=== PATIENT | female | born 2000 | race Caucasian/White ===

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

== ENCOUNTER 2019-02-20 12:12 | Emergency (ER) | payer OTHER ==
[~2019-02-20] VITALS: Ht 162.5 cm; Wt 113.4 kg
[~2019-02-20 12:12] MED LIST changes: +PREDNISONE50 MG PO
[2019-02-20 12:56] LABS: BASO % 0.1 % (0.0-1.0); EOS # 0.1 10*3/uL (0.0-0.4); EOS % 1.1 % (1.0-4.0); HEMATOCRIT 42.8 % (37.0-47.0); HEMOGLOBIN 13.4 g/dl (12.0-16.0); LYMPH # 1.5 10*3/uL (1.3-4.4); LYMPH % 20.8 % (27.0-41.0); MEAN CELL VOLUME 85.4 fl (81.0-99.0); MEAN CORPUSCULAR HGB 26.7 pg (27.0-31.0); MEAN CORPUSCULAR HGB CONC 31.3 g/dl (33.0-37.0); MEAN PLATELET VOLUME 9.7 fl (9.6-12.3); MONO # 0.6 10*3/uL (0.1-1.0); MONO % 8.8 % (3.0-9.0); NEUT # 4.9 10*3/uL (2.3-7.9); NEUT % 69.1 % (47.0-73.0); PLATELET COUNT AUTOMATED 224 10*3/uL (130-400); RED BLOOD COUNT 5.01 10*6/uL (4.10-5.10); RED CELL DISTRI WIDTH 13.5 % (0-14.5); WHITE BLOOD COUNT 7.1 10*3/uL (4.8-10.8)
[2019-02-20 13:08] LABS: ACT PARTIAL THROMBO TIME 28.5 SECONDS (20.0-32.1)
[2019-02-20 13:16] LABS: LIPASE 64 U/L (73-393)
[2019-02-20 13:17] LABS: BETA-HCG, QUANT < 1.0 mIU/mL (1-3)
[2019-02-20 13:18] LABS: BILIRUBIN 1+ (NEGATIVE); BLOOD 3+ (NEGATIVE); CLARITY CLOUDY (CLEAR); COLOR YELLOW (YELLOW); GLUCOSE NEGATIVE (NEGATIVE); KETONE TRACE (NEGATIVE); LEUKO ESTERASE TRACE (NEGATIVE); NITRITE NEGATIVE (NEGATIVE); SPECIFIC GRAVITY 1.025 (1.005-1.030); UROBILINOGEN 0.2 E.U./dl (0.2-1.0)
[2019-02-20 13:31] LABS: BACTERIA 1+; EPITHELIAL CELLS 15-20; MUCOUS 2+
[2019-02-20 14:15] LABS: ALBUMIN 3.8 gm/dl (3.1-4.5); ALKALINE PHOSPHATASE 93 U/L (45-117); BUN 17 mg/dl (7-24); CHLORIDE 112 mmol/L (98-107); CREATININE 0.89 mg/dL (0.55-1.02); POTASSIUM 3.8 mmol/L (3.5-5.1); SGOT/AST 22 IU/L (3-35); SGPT/ALT 44 U/L (12-78); SODIUM 143 mmol/L (136-145); TOTAL PROTEIN 7.5 gm/dL (6.4-8.2)
[2019-02-20 14:23] LABS: TROPONIN I < 0.015 ng/ml (<0.045)
[2019-02-20] MEDS ORDERED: ZITHROMAX500 MG PO (16:38)
[2019-02-20] MEDS ORDERED: PROVENTIL HFA6.7 GM INH (16:38)
[2019-02-20] MEDS ORDERED: PREDNISONE20 M1 PO (16:38)
[2019-02-20] MEDS ORDERED: ZOFRAN4 MG PO (16:38)
== END 2019-02-20 16:55 | disposition home or self-care (01) ==
LOC: ED 12:12
PROVIDERS: Emergency Medicine; Nurse Practitioner Family
DX: J20.9 Acute bronchitis, unspecified (principal); R11.2 Nausea with vomiting, unspecified; R19.7 Diarrhea, unspecified; R10.9 Unspecified abdominal pain; I10 Essential (primary) hypertension; J45.909 Unspecified asthma, uncomplicated; Z79.899 Other long term (current) drug therapy

== ENCOUNTER 2019-07-26 12:58 | Emergency (ER) | payer OTHER ==
[~2019-07-26] VITALS: Ht 160 cm; Wt 122.5 kg
[~2019-07-26 12:58] MED LIST changes: +PROVENTIL HFA6.7 GM INH; +ZITHROMAX500 MG PO; +ZOFRAN4 MG PO
[2019-07-26 13:59] LABS: BASO % 0.5 % (0.0-1.0); EOS # 0.2 10*3/uL (0.0-0.4); EOS % 2.2 % (1.0-4.0); HEMATOCRIT 42.6 % (37.0-47.0); LYMPH # 2.2 10*3/uL (1.3-4.4); LYMPH % 26.7 % (27.0-41.0); MEAN CELL VOLUME 84.7 fl (81.0-99.0); MEAN CORPUSCULAR HGB 26.4 pg (27.0-31.0); MEAN CORPUSCULAR HGB CONC 31.2 g/dl (33.0-37.0); MEAN PLATELET VOLUME 9.2 fl (9.6-12.3); MONO # 0.6 10*3/uL (0.1-1.0); MONO % 7.2 % (3.0-9.0); NEUT # 5.1 10*3/uL (2.3-7.9); NEUT % 62.9 % (47.0-73.0); PLATELET COUNT AUTOMATED 235 10*3/uL (130-400); RED BLOOD COUNT 5.03 10*6/uL (4.10-5.10); RED CELL DISTRI WIDTH 14.1 % (0-14.5); WHITE BLOOD COUNT 8.1 10*3/uL (4.8-10.8)
[2019-07-26 14:16] LABS: ALKALINE PHOSPHATASE 108 U/L (45-117); BUN 14 mg/dl (7-24); CHLORIDE 111 mmol/L (98-107); CPK 282 U/L (26-192); CREATININE 0.78 mg/dL (0.55-1.02); POTASSIUM 4.1 mmol/L (3.5-5.1); SGOT/AST 25 IU/L (3-35); SGPT/ALT 55 U/L (12-78); SODIUM 139 mmol/L (136-145)
[2019-07-26 14:20] LABS: TROPONIN I < 0.015 ng/ml (<0.045)
[2019-07-26] MEDS ORDERED: ZOFRAN4 MG PO (15:35)
[2019-07-26] MEDS ORDERED: Motrin,Rufen800 MG PO (15:35)
== END 2019-07-26 15:42 | disposition home or self-care (01) ==
LOC: ED 12:58
PROVIDERS: Internal Medicine
DX: S00.83XA Contusion of other part of head, initial encounter (principal); R11.2 Nausea with vomiting, unspecified; I10 Essential (primary) hypertension; J45.909 Unspecified asthma, uncomplicated; Y08.89XA Assault by other specified means, initial encounter; Y93.89 Activity, other specified; Y92.89 Other specified places as the place of occurrence of the external cause; Y99.8 Other external cause status

== ENCOUNTER 2019-08-18 17:10 | Emergency (ER) | payer OTHER ==
[~2019-08-18] VITALS: Ht 160 cm; Wt 113.4 kg
[~2019-08-18 17:10] MED LIST changes: +Motrin,Rufen800 MG PO
[2019-08-18] MEDS ORDERED: IBU600 M1 PO (18:48)
== END 2019-08-18 18:51 | disposition home or self-care (01) ==
LOC: ED 17:10
DX: S60.212A Contusion of left wrist, initial encounter (principal); X58.XXXA Exposure to other specified factors, initial encounter; Y93.89 Activity, other specified; Y92.89 Other specified places as the place of occurrence of the external cause; Y99.8 Other external cause status

== ENCOUNTER 2020-02-18 16:30 | Emergency (ER) | payer OTHER ==
[~2020-02-18] VITALS: Ht 160 cm; Wt 127.0 kg
[~2020-02-18 16:30] MED LIST changes: +IBU600 M1 PO
== END 2020-02-18 18:33 | disposition left against medical advice (07) ==
LOC: ED 16:30
DX: R30.9 Painful micturition, unspecified (principal); Z53.21 Procedure and treatment not carried out due to patient leaving prior to being seen by health care provider

== ENCOUNTER → 2020-02-20 | Outpatient (CLI) | payer OTHER ==
[2020-02-20 16:14] LABS: BILIRUBIN Negative (Negative); BLOOD Negative (Negative); CLARITY Turbid (Clear); COLOR Yellow (Yellow); GLUCOSE Negative (Negative); KETONE Trace (Negative); LEUKO ESTERASE 2+ (Negative); NITRITE Negative (Negative); PH 7.5 (4.5-8.0); SPECIFIC GRAVITY >= 1.030 (1.001-1.030)
[2020-02-20 16:46] LABS: BACTERIA 1+
== END | disposition home or self-care (01) ==
LOC: LAB 15:42
PROVIDERS: ATTEND Nurse Practitioner Women's Health
DX: R35.0 Frequency of micturition (principal)

== ENCOUNTER 2020-05-21 01:36 | Emergency (ER) | payer OTHER ==
[2020-05-21 02:04] LABS: BASO % 0.4 % (0.0-1.0); EOS # 0.2 10*3/uL (0.0-0.4); EOS % 1.6 % (1.0-4.0); HEMATOCRIT 41.3 % (37.0-47.0); LYMPH # 3.4 10*3/uL (1.3-4.4); LYMPH % 31.2 % (27.0-41.0); MEAN CORPUSCULAR HGB CONC 31.7 g/dl (33.0-37.0); MEAN PLATELET VOLUME 9.1 fl (9.6-12.3); MONO # 0.7 10*3/uL (0.1-1.0); MONO % 6.7 % (3.0-9.0); NEUT # 6.5 10*3/uL (2.3-7.9); NEUT % 59.8 % (47.0-73.0); PLATELET COUNT AUTOMATED 276 10*3/uL (130-400); RED BLOOD COUNT 4.86 10*6/uL (4.10-5.10); RED CELL DISTRI WIDTH 14.1 % (0-14.5); WHITE BLOOD COUNT 10.9 10*3/uL (4.8-10.8)
[2020-05-21 02:20] LABS: ALBUMIN 3.8 gm/dl (3.1-4.5); ALKALINE PHOSPHATASE 123 U/L (45-117); BUN 11 mg/dl (7-24); CHLORIDE 110 mmol/L (98-107); CREATININE 1.01 mg/dL (0.55-1.02); POTASSIUM 3.7 mmol/L (3.5-5.1); SGOT/AST 24 IU/L (3-35); SGPT/ALT 54 U/L (12-78); SODIUM 140 mmol/L (136-145); TOTAL PROTEIN 7.8 gm/dL (6.4-8.2)
== END 2020-05-21 03:15 | disposition home or self-care (01) ==
LOC: ED 01:36
PROVIDERS: Internal Medicine
DX: R07.9 Chest pain, unspecified (principal); R42 Dizziness and giddiness; R05 Cough; J45.909 Unspecified asthma, uncomplicated; I10 Essential (primary) hypertension; F17.200 Nicotine dependence, unspecified, uncomplicated; Z79.899 Other long term (current) drug therapy

== ENCOUNTER → 2020-06-24 | Outpatient (CLI) | payer OTHER | END | disposition home or self-care (01) | LOC: CARD 10:12 | PROVIDERS: ATTEND Internal Medicine Cardiovascular Disease | DX: I51.7 Cardiomegaly (principal); Q23.1 Congenital insufficiency of aortic valve ==

== ENCOUNTER 2020-08-02 05:45 | Emergency (ER) | payer OTHER ==
[2020-08-02] MEDS ORDERED: AUGMENTIN 875875 MG PO (06:01)
== END 2020-08-02 06:09 | disposition home or self-care (01) ==
LOC: ED 05:45
DX: H66.92 Otitis media, unspecified, left ear (principal); Z79.899 Other long term (current) drug therapy; Z79.2 Long term (current) use of antibiotics; Z98.890 Other specified postprocedural states

== ENCOUNTER → 2020-10-28 | Outpatient (CLI) | payer OTHER ==
[~2020-10-28] MED LIST changes: +AUGMENTIN 875875 MG PO
== END | disposition home or self-care (01) ==
LOC: RAD 09:29
PROVIDERS: ATTEND Nurse Practitioner Family
DX: U07.1 COVID-19 (principal); R05 Cough; R52 Pain, unspecified; R53.83 Other fatigue

== ENCOUNTER 2020-12-08 08:58 | Emergency (ER) | payer OTHER ==
[~2020-12-08] VITALS: Ht 160 cm; Wt 129.3 kg
[2020-12-08 09:47] LABS: BASO % 0.4 % (0.0-1.0); EOS # 0.2 10*3/uL (0.0-0.4); EOS % 1.8 % (1.0-4.0); HEMATOCRIT 41.2 % (37.0-47.0); LYMPH # 2.3 10*3/uL (1.3-4.4); LYMPH % 23.9 % (27.0-41.0); MEAN CELL VOLUME 84.1 fl (81.0-99.0); MEAN CORPUSCULAR HGB 27.1 pg (27.0-31.0); MEAN CORPUSCULAR HGB CONC 32.3 g/dl (33.0-37.0); MEAN PLATELET VOLUME 9.4 fl (9.6-12.3); MONO # 0.6 10*3/uL (0.1-1.0); MONO % 5.8 % (3.0-9.0); NEUT # 6.6 10*3/uL (2.3-7.9); NEUT % 67.8 % (47.0-73.0); PLATELET COUNT AUTOMATED 288 10*3/uL (130-400); RED CELL DISTRI WIDTH 13.2 % (0-14.5); WHITE BLOOD COUNT 9.7 10*3/uL (4.8-10.8)
[2020-12-08 09:58] LABS: ACT PARTIAL THROMBO TIME 27.9 SECONDS (20.0-32.1)
[2020-12-08 10:01] LABS: ALBUMIN 3.6 gm/dl (3.1-4.5); ALKALINE PHOSPHATASE 114 U/L (45-117); BUN 11 mg/dl (7-24); CHLORIDE 110 mmol/L (98-107); CREATININE 1.03 mg/dL (0.55-1.02); LIPASE 55 U/L (73-393); POTASSIUM 3.9 mmol/L (3.5-5.1); SGOT/AST 33 IU/L (3-35); SGPT/ALT 81 U/L (12-78); SODIUM 141 mmol/L (136-145); TOTAL PROTEIN 7.7 gm/dL (6.4-8.2)
[2020-12-08 10:02] LABS: BILIRUBIN Negative (Negative); BLOOD Negative (Negative); CLARITY Clear (Clear); COLOR Dark Yellow (Yellow); GLUCOSE Negative (Negative); KETONE Trace (Negative); LEUKO ESTERASE Trace (Negative); NITRITE Negative (Negative); PH 7.5 (4.5-8.0); SPECIFIC GRAVITY 1.025 (1.001-1.030)
[2020-12-08 10:25] LABS: RBC 0-2 rbc/hpf (0-2)
[2020-12-08] MEDS ORDERED: ZOFRAN4 MG PO ×2 (12:00)
[2020-12-25] MEDS ORDERED: AMOX TR-K CLV1 EACH PO (10:00)
[2020-12-25] MEDS ORDERED: VRAYLAR1.5 MG PO (10:00)
[2020-12-25] MEDS ORDERED: PROTONIX20 MG PO (10:01)
[2020-12-25] MEDS ORDERED: ONDANSETRON HYDR4 M1 PO (10:01)
[2020-12-25] MEDS ORDERED: ACID REDUCER10 MG PO (10:01)
[2020-12-25] MEDS ORDERED: CARAFATE1 G1 PO (10:02)
== END 2020-12-08 12:02 | disposition home or self-care (01) ==
LOC: ED 08:58
PROVIDERS: Emergency Medicine
DX: K92.0 Hematemesis (principal); F17.200 Nicotine dependence, unspecified, uncomplicated

== ENCOUNTER 2021-04-18 13:13 | Emergency (ER) | payer OTHER ==
[~2021-04-18 13:13] MED LIST changes: +ACID REDUCER10 MG PO; +AMOX TR-K CLV1 EACH PO; +CARAFATE1 G1 PO; +ONDANSETRON HYDR4 M1 PO; +PROTONIX20 MG PO; +VRAYLAR1.5 MG PO
== END 2021-04-18 17:26 | disposition left against medical advice (07) ==
LOC: ED 13:13
DX: R05.9 Cough, unspecified (principal); Z20.822 Contact with and (suspected) exposure to COVID-19; J02.9 Acute pharyngitis, unspecified; F17.200 Nicotine dependence, unspecified, uncomplicated; Z79.899 Other long term (current) drug therapy

== ENCOUNTER 2021-09-17 10:25 | Emergency (ER) | payer OTHER ==
[~2021-09-17] VITALS: Wt 127.0 kg
[2021-09-17 11:09] LABS: BASO # 0.1 10*3/uL (0.0-0.1); BASO % 0.5 % (0.0-1.0); EOS # 0.3 10*3/uL (0.0-0.4); EOS % 3.3 % (1.0-4.0); HEMATOCRIT 39.6 % (37.0-47.0); LYMPH # 1.2 10*3/uL (1.3-4.4); LYMPH % 12.7 % (27.0-41.0); MEAN CELL VOLUME 85.5 fl (81.0-99.0); MEAN CORPUSCULAR HGB 27.6 pg (27.0-31.0); MEAN CORPUSCULAR HGB CONC 32.3 g/dl (33.0-37.0); MEAN PLATELET VOLUME 9.6 fl (9.6-12.3); MONO # 0.7 10*3/uL (0.1-1.0); MONO % 7.1 % (3.0-9.0); NEUT # 7.3 10*3/uL (2.3-7.9); NEUT % 76.1 % (47.0-73.0); PLATELET COUNT AUTOMATED 218 10*3/uL (130-400); RED BLOOD COUNT 4.63 10*6/uL (4.10-5.10); RED CELL DISTRI WIDTH 13.5 % (0-14.5); WHITE BLOOD COUNT 9.6 10*3/uL (4.8-10.8)
[2021-09-17 11:26] LABS: ALKALINE PHOSPHATASE 97 U/L (45-117); BUN 9 mg/dl (7-24); CHLORIDE 114 mmol/L (98-107); CREATININE 0.83 mg/dL (0.55-1.02); POTASSIUM 3.8 mmol/L (3.5-5.1); SGOT/AST 21 IU/L (3-35); SGPT/ALT 45 U/L (12-78); SODIUM 144 mmol/L (136-145); TOTAL PROTEIN 6.8 gm/dL (6.4-8.2)
[2021-09-17 11:34] LABS: THYROID STIM HORMONE (HS) 0.962 uIU/ml (0.358-4.75)
== END 2021-09-17 12:03 | disposition home or self-care (01) ==
LOC: ED 10:25
PROVIDERS: Nurse Practitioner Family
DX: B34.9 Viral infection, unspecified (principal); Z20.822 Contact with and (suspected) exposure to COVID-19; Z79.899 Other long term (current) drug therapy

== ENCOUNTER 2021-12-17 16:11 | Emergency (ER) | payer OTHER ==
[~2021-12-17] VITALS: Ht 160 cm; Wt 131.5 kg
[2021-12-17 16:49] LABS: BASO # 0.1 10*3/uL (0.0-0.1); BASO % 0.4 % (0.0-1.0); EOS # 0.4 10*3/uL (0.0-0.4); HEMATOCRIT 38.8 % (37.0-47.0); LYMPH # 2.8 10*3/uL (1.3-4.4); LYMPH % 21.3 % (27.0-41.0); MEAN CORPUSCULAR HGB CONC 32.2 g/dl (33.0-37.0); MEAN PLATELET VOLUME 8.8 fl (9.6-12.3); MONO # 0.9 10*3/uL (0.1-1.0); MONO % 6.6 % (3.0-9.0); NEUT # 8.9 10*3/uL (2.3-7.9); NEUT % 68.3 % (47.0-73.0); PLATELET COUNT AUTOMATED 302 10*3/uL (130-400); RED BLOOD COUNT 4.46 10*6/uL (4.10-5.10); RED CELL DISTRI WIDTH 13.9 % (0-14.5)
[2021-12-17 17:04] LABS: ACT PARTIAL THROMBO TIME 27.3 SECONDS (20.0-32.1); INTERNATIONAL NORM RATIO 0.9 (2.0-3.5)
[2021-12-17 17:12] LABS: ALKALINE PHOSPHATASE 114 U/L (45-117); BUN 13 mg/dl (7-24); CHLORIDE 110 mmol/L (98-107); CREATININE 0.82 mg/dL (0.55-1.02); SGOT/AST 28 IU/L (3-35); SGPT/ALT 64 U/L (12-78); SODIUM 141 mmol/L (136-145); TOTAL PROTEIN 7.1 gm/dL (6.4-8.2)
== END 2021-12-17 18:33 | disposition home or self-care (01) ==
LOC: ED 16:11
PROVIDERS: Emergency Medicine
DX: R53.83 Other fatigue (principal); R60.0 Localized edema; Z79.899 Other long term (current) drug therapy

== ENCOUNTER 2022-11-21 09:52 | Emergency (ER) | payer OTHER ==
[~2022-11-21] VITALS: Ht 162.5 cm; Wt 140.6 kg
[2022-11-21] MEDS ORDERED: MELOXICAM15 MG PO (10:12)
[2022-11-21] MEDS ORDERED: AVPAK AZITHROM250 M1 PO (10:12)
[2022-11-21] MEDS ORDERED: BENZONATATE100 M1 PO (10:12)
== END 2022-11-21 10:40 | disposition home or self-care (01) ==
LOC: ED 09:52
DX: J45.909 Unspecified asthma, uncomplicated (principal); M79.10 Myalgia, unspecified site; I10 Essential (primary) hypertension; Z98.890 Other specified postprocedural states; F17.290 Nicotine dependence, other tobacco product, uncomplicated

== ENCOUNTER 2023-01-20 07:52 | Emergency (ER) | payer OTHER ==
[~2023-01-20] VITALS: Wt 142.9 kg
[~2023-01-20 07:52] MED LIST changes: +AVPAK AZITHROM250 M1 PO; +BENZONATATE100 M1 PO; +MELOXICAM15 MG PO
[2023-01-20 08:35] LABS: BASO % 0.3 % (0.0-1.0); EOS # 0.3 10*3/uL (0.0-0.4); HEMATOCRIT 39.1 % (37.0-47.0); LYMPH # 2.1 10*3/uL (1.3-4.4); LYMPH % 21.7 % (27.0-41.0); MEAN CELL VOLUME 84.6 fl (81.0-99.0); MEAN CORPUSCULAR HGB 27.7 pg (27.0-31.0); MEAN CORPUSCULAR HGB CONC 32.7 g/dl (33.0-37.0); MEAN PLATELET VOLUME 9.2 fl (9.6-12.3); MONO # 0.6 10*3/uL (0.1-1.0); MONO % 6.1 % (3.0-9.0); NEUT # 6.6 10*3/uL (2.3-7.9); NEUT % 68.6 % (47.0-73.0); PLATELET COUNT AUTOMATED 235 10*3/uL (130-400); RED BLOOD COUNT 4.62 10*6/uL (4.10-5.10); WHITE BLOOD COUNT 9.6 10*3/uL (4.8-10.8)
[2023-01-20 08:46] LABS: ACT PARTIAL THROMBO TIME 28.7 SECONDS (20.0-32.1)
[2023-01-20 08:56] LABS: ALKALINE PHOSPHATASE 90 U/L (46-116); BUN 10 mg/dl (9-23); CHLORIDE 109 mmol/L (98-107); LIPASE 27 U/L (12-53); POTASSIUM 4.3 mmol/L (3.4-5.1); SGPT/ALT 50 U/L (5-49); TOTAL PROTEIN 6.6 gm/dL (6.0-8.0)
[2023-01-20 09:11] LABS: BETA-HCG, QUANT < 3.0 mIU/mL (3-10)
[2023-01-20] MEDS ORDERED: CYCLOBENZAPRINE10 MG PO (11:40)
[2023-01-20] MEDS ORDERED: PREDNISONE50 MG PO (11:40)
== END 2023-01-20 11:51 | disposition home or self-care (01) ==
LOC: ED 07:52
PROVIDERS: Emergency Medicine
DX: S16.1XXA Strain of muscle, fascia and tendon at neck level, initial encounter (principal); M54.9 Dorsalgia, unspecified; R10.2 Pelvic and perineal pain; J45.909 Unspecified asthma, uncomplicated; I10 Essential (primary) hypertension; Z98.890 Other specified postprocedural states; X58.XXXA Exposure to other specified factors, initial encounter; Y93.89 Activity, other specified; Y92.89 Other specified places as the place of occurrence of the external cause; Y99.8 Other external cause status

== ENCOUNTER → 2023-02-07 | Outpatient (CLI) | payer OTHER ==
[~2023-02-07] MED LIST changes: +CYCLOBENZAPRINE10 MG PO
== END | disposition home or self-care (01) ==
LOC: MRI 10:44
PROVIDERS: ATTEND Nurse Practitioner Family
DX: M47.27 Other spondylosis with radiculopathy, lumbosacral region (principal); M54.41 Lumbago with sciatica, right side; M54.42 Lumbago with sciatica, left side

== ENCOUNTER 2023-04-02 09:38 | Emergency (ER) | payer OTHER ==
[~2023-04-02] VITALS: Ht 162.5 cm; Wt 145.1 kg
[2023-04-02] MEDS ORDERED: BUSPAR5 MG PO (09:53)
[2023-04-02] MEDS ORDERED: VENLAFAXINE HY150 M2 PO (09:54)
[2023-04-02] MEDS ORDERED: HYDROXYZINE PAM50 MG PO (09:54)
[2023-04-02] MEDS ORDERED: Amoxicillin/Clavulanate Pota 875 MG TAB PO ONE (10:00)
[2023-04-02] MEDS ORDERED: Ondansetron Hydrochloride 4 MG TAB PO ONE (10:00)
[2023-04-02] MEDS ORDERED: AMOX-CLAV 875-1 EACH PO (10:02)
[2023-04-02] MEDS ORDERED: ONDANSETRON4 MG SL (10:02)
== END 2023-04-02 10:18 | disposition home or self-care (01) ==
LOC: ED 09:38
DX: J02.0 Streptococcal pharyngitis (principal); R11.2 Nausea with vomiting, unspecified; I10 Essential (primary) hypertension; J45.909 Unspecified asthma, uncomplicated; F17.210 Nicotine dependence, cigarettes, uncomplicated; Z98.890 Other specified postprocedural states

== ENCOUNTER 2023-06-30 07:43 | Emergency (ER) | payer OTHER ==
[~2023-06-30] VITALS: Ht 160 cm; Wt 149.2 kg
[~2023-06-30 07:43] MED LIST changes: +AMOX-CLAV 875-1 EACH PO; +BUSPAR5 MG PO; +HYDROXYZINE PAM50 MG PO; +ONDANSETRON4 MG SL; +VENLAFAXINE HY150 M2 PO
[2023-06-30] MEDS ORDERED: Albuterol Sulfate 2.5 MG/3 ML VIAL NEB ONE (08:05)
[2023-06-30] MEDS ORDERED: VENT7GM INH (08:05)
[2023-06-30] MEDS ORDERED: SODIUM CHLORIDE 0.9% 1,000 ML IV ONE (08:05)
[2023-06-30 08:19] LABS: BASO % 0.3 % (0.0-1.0); EOS # 0.3 10*3/uL (0.0-0.4); EOS % 3.5 % (1.0-4.0); HEMATOCRIT 39.8 % (37.0-47.0); LYMPH # 1.3 10*3/uL (1.3-4.4); LYMPH % 13.3 % (27.0-41.0); MEAN CELL VOLUME 85.8 fl (81.0-99.0); MEAN CORPUSCULAR HGB 26.9 pg (27.0-31.0); MEAN CORPUSCULAR HGB CONC 31.4 g/dl (33.0-37.0); MEAN PLATELET VOLUME 9.2 fl (9.6-12.3); MONO # 0.8 10*3/uL (0.1-1.0); NEUT # 7.1 10*3/uL (2.3-7.9); NEUT % 74.7 % (47.0-73.0); PLATELET COUNT AUTOMATED 271 10*3/uL (130-400); RED BLOOD COUNT 4.64 10*6/uL (4.10-5.10); RED CELL DISTRI WIDTH 13.7 % (0-14.5); WHITE BLOOD COUNT 9.5 10*3/uL (4.8-10.8)
[2023-06-30 08:41] LABS: ALKALINE PHOSPHATASE 100 U/L (46-116); BUN 12 mg/dl (9-23); CHLORIDE 109 mmol/L (98-107); SGPT/ALT 49 U/L (5-49); TOTAL PROTEIN 7.2 gm/dL (6.0-8.0)
== END 2023-06-30 09:03 | disposition home or self-care (01) ==
LOC: ED 07:43
PROVIDERS: Emergency Medicine
DX: J45.909 Unspecified asthma, uncomplicated (principal); I10 Essential (primary) hypertension; F17.200 Nicotine dependence, unspecified, uncomplicated; Z98.890 Other specified postprocedural states

== ENCOUNTER 2023-12-24 13:21 | Emergency (ER) | payer OTHER ==
[~2023-12-24] VITALS: Ht 162.5 cm; Wt 145.1 kg
[~2023-12-24 13:21] MED LIST changes: +VENT7GM INH
[2023-12-24] MEDS ORDERED: SLYND4 MG PO (13:56)
[2023-12-24] MEDS ORDERED: HYDROCHLOROTHIA25 M1 PO (13:56)
[2023-12-24] MEDS ORDERED: predniSONE 20 MG TAB PO ONE (14:10)
[2023-12-24] MEDS ORDERED: CEPHALEXIN 500 MG CAP PO ONE (14:10)
[2023-12-24] MEDS ORDERED: CEPHALEXIN500 M1 PO (14:29)
[2023-12-24] MEDS ORDERED: PREDNISONE20 M1 PO (14:29)
== END 2023-12-24 15:00 | disposition home or self-care (01) ==
LOC: ED 13:21
DX: T65.6X1A Toxic effect of paints and dyes, not elsewhere classified, accidental (unintentional), initial encounter (principal); L25.2 Unspecified contact dermatitis due to dyes; J45.909 Unspecified asthma, uncomplicated; I10 Essential (primary) hypertension; Z98.890 Other specified postprocedural states; Z87.891 Personal history of nicotine dependence; Y92.89 Other specified places as the place of occurrence of the external cause

== ENCOUNTER → 2024-01-04 | Outpatient (CLI) | payer OTHER ==
[~2024-01-04] MED LIST changes: +CEPHALEXIN500 M1 PO; +HYDROCHLOROTHIA25 M1 PO; +SLYND4 MG PO
[2024-01-04 12:54] LABS: BASO % 0.4 % (0.0-1.0); EOS # 0.2 10*3/uL (0.0-0.4); EOS % 2.4 % (1.0-4.0); HEMATOCRIT 43.1 % (37.0-47.0); MEAN CELL VOLUME 85.5 fl (81.0-99.0); MEAN CORPUSCULAR HGB 26.6 pg (27.0-31.0); MEAN CORPUSCULAR HGB CONC 31.1 g/dl (33.0-37.0); MEAN PLATELET VOLUME 9.3 fl (9.6-12.3); MONO # 0.5 10*3/uL (0.1-1.0); MONO % 4.9 % (3.0-9.0); NEUT % 68.9 % (47.0-73.0); PLATELET COUNT AUTOMATED 319 10*3/uL (130-400); RED BLOOD COUNT 5.04 10*6/uL (4.10-5.10); RED CELL DISTRI WIDTH 13.8 % (0-14.5); WHITE BLOOD COUNT 10.1 10*3/uL (4.8-10.8)
[2024-01-04 13:06] LABS: ACT PARTIAL THROMBO TIME 27.3 SECONDS (20.0-32.1)
[2024-01-04 13:16] LABS: BUN 11 mg/dl (9-23); CHLORIDE 109 mmol/L (98-107); POTASSIUM 3.9 mmol/L (3.4-5.1)
== END | disposition home or self-care (01) ==
LOC: LAB 12:30
PROVIDERS: ATTEND Internal Medicine Cardiovascular Disease
DX: Q23.81 Bicuspid aortic valve (principal)

== ENCOUNTER 2024-04-06 10:19 | Emergency (ER) | payer OTHER ==
[~2024-04-06] VITALS: Ht 162.5 cm; Wt 148.8 kg
[2024-04-06] MEDS ORDERED: Albuterol Sulfate 2.5 MG/3 ML VIAL NEB ONE (11:10)
[2024-04-06] MEDS ORDERED: VENT7GM INH (12:18)
== END 2024-04-06 12:37 | disposition home or self-care (01) ==
LOC: ED 10:19
DX: B34.9 Viral infection, unspecified (principal); Z20.822 Contact with and (suspected) exposure to COVID-19; J45.909 Unspecified asthma, uncomplicated; I10 Essential (primary) hypertension; Z98.890 Other specified postprocedural states; Z87.891 Personal history of nicotine dependence

== ENCOUNTER 2024-06-02 18:58 | Emergency (ER) | payer OTHER ==
[~2024-06-02] VITALS: Ht 160 cm; Wt 149.7 kg
[2024-06-02] MEDS ORDERED: Acetaminophen/Hydrocodone 5 MG/325 MG TABLET PO ONE (19:30)
[2024-06-02] MEDS ORDERED: Ondansetron Hydrochloride 4 MG TAB SL ONE (19:30)
[2024-06-02] MEDS ORDERED: Bacitracin Zinc 14 GM TUBE T ONE (19:50)
== END 2024-06-02 20:07 | disposition home or self-care (01) ==
LOC: ED 18:58
DX: S81.832A Puncture wound without foreign body, left lower leg, initial encounter (principal); Z79.899 Other long term (current) drug therapy; Z98.890 Other specified postprocedural states; W18.39XA Other fall on same level, initial encounter; Y93.89 Activity, other specified; Y92.89 Other specified places as the place of occurrence of the external cause; Y99.8 Other external cause status

== ENCOUNTER 2024-06-19 13:17 | Emergency (ER) | payer OTHER ==
[~2024-06-19] VITALS: Ht 160 cm; Wt 149.7 kg
[2024-06-19] MEDS ORDERED: [UNRECOGNIZED DRUG - OTHER] (13:29)
== END 2024-06-19 14:58 | disposition home or self-care (01) ==
LOC: ED 13:17
DX: B34.9 Viral infection, unspecified (principal); J45.909 Unspecified asthma, uncomplicated; F32.A Depression, unspecified; Z20.822 Contact with and (suspected) exposure to COVID-19; Z79.899 Other long term (current) drug therapy; Z98.890 Other specified postprocedural states

== ENCOUNTER → 2024-06-24 | Outpatient (CLI) | payer OTHER ==
[~2024-06-24] MED LIST changes: +[UNRECOGNIZED DRUG - OTHER]
== END | disposition home or self-care (01) ==
LOC: WOUNDCARE 11:41
PROVIDERS: ATTEND Nurse Practitioner Family
DX: S81.832A Puncture wound without foreign body, left lower leg, initial encounter (principal); S81.802A Unspecified open wound, left lower leg, initial encounter; L97.822 Non-pressure chronic ulcer of other part of left lower leg with fat layer exposed; R60.9 Edema, unspecified; I10 Essential (primary) hypertension; J45.909 Unspecified asthma, uncomplicated; E66.9 Obesity, unspecified; F17.210 Nicotine dependence, cigarettes, uncomplicated; Z68.43 Body mass index [BMI] 50.0-59.9, adult; Z98.890 Other specified postprocedural states; Z79.899 Other long term (current) drug therapy; X58.XXXA Exposure to other specified factors, initial encounter; Y93.89 Activity, other specified; Y92.89 Other specified places as the place of occurrence of the external cause; Y99.8 Other external cause status

== ENCOUNTER → 2024-07-04 | Outpatient (CLI) | payer OTHER | END | disposition home or self-care (01) | LOC: WOUNDCARE 03:43 | PROVIDERS: ATTEND Nurse Practitioner Family | DX: S81.832D Puncture wound without foreign body, left lower leg, subsequent encounter (principal); L97.822 Non-pressure chronic ulcer of other part of left lower leg with fat layer exposed; I10 Essential (primary) hypertension; J45.909 Unspecified asthma, uncomplicated; E66.9 Obesity, unspecified; F17.210 Nicotine dependence, cigarettes, uncomplicated; Z68.43 Body mass index [BMI] 50.0-59.9, adult; Z98.890 Other specified postprocedural states; Z79.899 Other long term (current) drug therapy; X58.XXXD Exposure to other specified factors, subsequent encounter ==

== ENCOUNTER 2024-07-09 17:35 | Emergency (ER) | payer OTHER ==
[~2024-07-09] VITALS: Ht 160 cm; Wt 149.7 kg
[2024-07-09] MEDS ORDERED: SODIUM CHLORIDE 0.9% 1,000 ML IV ONE (19:25)
[2024-07-09] MEDS ORDERED: Ondansetron Hydrochloride 4 MG/2 ML VIAL IV ONE (19:25)
[2024-07-09 19:33] LABS: BASO % 0.2 % (0.0-1.0); EOS # 0.2 10*3/uL (0.0-0.4); EOS % 1.3 % (1.0-4.0); HEMATOCRIT 41.6 % (37.0-47.0); MEAN CELL VOLUME 84.6 fl (81.0-99.0); MEAN CORPUSCULAR HGB 26.6 pg (27.0-31.0); MEAN CORPUSCULAR HGB CONC 31.5 g/dl (33.0-37.0); MONO # 0.5 10*3/uL (0.1-1.0); MONO % 4.6 % (3.0-9.0); NEUT # 9.3 10*3/uL (2.3-7.9); NEUT % 83.3 % (47.0-73.0); PLATELET COUNT AUTOMATED 273 10*3/uL (130-400); RED BLOOD COUNT 4.92 10*6/uL (4.10-5.10); RED CELL DISTRI WIDTH 13.7 % (0-14.5); WHITE BLOOD COUNT 11.2 10*3/uL (4.8-10.8)
[2024-07-09 19:49] LABS: BILIRUBIN Negative (Negative); BLOOD Negative (Negative); CLARITY Clear (Clear); COLOR Dark Yellow (Yellow); GLUCOSE Negative (Negative); KETONE Trace (Negative); LEUKO ESTERASE Negative (Negative); NITRITE Negative (Negative); PH 7.5 (4.5-8.0); SPECIFIC GRAVITY >= 1.030 (1.001-1.030)
[2024-07-09 19:55] LABS: ALKALINE PHOSPHATASE 87 U/L (46-116); BUN 13 mg/dl (9-23); CHLORIDE 107 mmol/L (98-107); LIPASE 28 U/L (12-53); POTASSIUM 3.9 mmol/L (3.4-5.1); SGPT/ALT 65 U/L (5-49); TOTAL PROTEIN 7.2 gm/dL (6.0-8.0)
[2024-07-09 19:58] LABS: BACTERIA TRACE; MUCOUS 2+; RBC 0-2 rbc/hpf (0-2); WBC 0-2 wbc/hpf (0-5)
[2024-07-09] MEDS ORDERED: Ondansetron4 MG PO (21:53)
[2024-07-09] MEDS ORDERED: Ondansetron Hydrochloride 4 MG TAB SL ONE (21:55)
== END 2024-07-09 22:19 | disposition home or self-care (01) ==
LOC: ED 17:35
PROVIDERS: Internal Medicine
DX: R11.2 Nausea with vomiting, unspecified (principal); R79.89 Other specified abnormal findings of blood chemistry; R10.10 Upper abdominal pain, unspecified; Z98.890 Other specified postprocedural states

== ENCOUNTER → 2024-07-11 | Outpatient (CLI) | payer OTHER ==
[~2024-07-11] MED LIST changes: +Ondansetron4 MG PO
== END | disposition home or self-care (01) ==
LOC: WOUNDCARE 00:49
PROVIDERS: ATTEND Nurse Practitioner Family
DX: S81.832D Puncture wound without foreign body, left lower leg, subsequent encounter (principal); L97.822 Non-pressure chronic ulcer of other part of left lower leg with fat layer exposed; I10 Essential (primary) hypertension; J45.909 Unspecified asthma, uncomplicated; E66.9 Obesity, unspecified; F17.210 Nicotine dependence, cigarettes, uncomplicated; Z68.43 Body mass index [BMI] 50.0-59.9, adult; Z98.890 Other specified postprocedural states; Z79.899 Other long term (current) drug therapy; X58.XXXD Exposure to other specified factors, subsequent encounter

== ENCOUNTER → 2024-07-22 | Outpatient (CLI) | payer OTHER | END | disposition home or self-care (01) | LOC: WOUNDCARE 02:11 | PROVIDERS: ATTEND Nurse Practitioner Family | DX: S81.832D Puncture wound without foreign body, left lower leg, subsequent encounter (principal); L97.822 Non-pressure chronic ulcer of other part of left lower leg with fat layer exposed; E66.9 Obesity, unspecified; I10 Essential (primary) hypertension; J45.909 Unspecified asthma, uncomplicated; Z98.890 Other specified postprocedural states; Z79.899 Other long term (current) drug therapy; X58.XXXD Exposure to other specified factors, subsequent encounter ==

== ENCOUNTER → 2024-08-15 | Outpatient (CLI) | payer OTHER | END | disposition home or self-care (01) | LOC: US 02:54 | PROVIDERS: ATTEND Nurse Practitioner Family | DX: K76.0 Fatty (change of) liver, not elsewhere classified (principal); R74.01 Elevation of levels of liver transaminase levels ==

== ENCOUNTER → 2024-08-21 | Outpatient (CLI) | payer OTHER | END | disposition home or self-care (01) | LOC: LAB 12:06 | PROVIDERS: ATTEND Nurse Practitioner Family | DX: R74.01 Elevation of levels of liver transaminase levels (principal) ==